=== PATIENT | female | born 1965 | race American Indian/Alaskan Native ===

== ENCOUNTER 2017-09-01 14:05 | Emergency (ER) | payer MEDICAID ==
[2017-09-01 14:37] VITALS: BP 158/95
[2017-09-01] MEDS ORDERED: TYLENOL PO ONE (17:53)
[2017-09-01] MEDS ORDERED: FUL-GLO OP ONE (17:53)
[2017-09-01] MEDS ORDERED: TETRACAINE 0.5% OU STA (17:53)
[2017-09-01] MEDS ORDERED: MOTRIN PO ONE (17:53)
--- NOTE | 2017-09-01 17:54 | Emergency Department Report ---
ED General Adult HPI - General Chief complaint: Eye Problems Stated complaint: EYE PAIN Time Seen by Provider: 09/01/17 17:47 Source: patient, RN notes reviewed Mode of arrival: Ambulatory Limitations: No Limitations - History of Present Illness Initial comments: This is a 52-year-old female who was previously unknown to this provider, typically wears glasses, patient seen 2 weeks ago by an hand collator in [place], Dr. Busby, who prescribed the patient a neomycin polymyxin ointment for her eyes for nonspecific ocular redness. Patient reports that at the time her hand collator felt that the ocular redness was coming to saline solution. She reports that over the past 2 weeks she's had increasing eye redness and discomfort. She also describes discharge in the morning. She is currently using glasses that are a prescription that is 20 years old. Her pain is constant, and does not have exacerbating or relieving factors. She denies loss of vision. -: Gradual Location: eyes Radiation: non-radiation Quality: aching Consistency: constant Improves with: none Worsens with: none Associated Symptoms: denies: confusion, chest pain, cough, diaphoresis, fever/ chills, headaches, loss of appetite, malaise, nausea/vomiting, rash, seizure, shortness of breath, syncope, weakness - Related Data Home Medications Medication Instructions Recorded Confirmed Last Taken amLODIPine [Norvasc] 5 mg PO DAILY 03/05/16 04/11/16 04/11/16 07:30 Previous Rx's Medication Instructions Recorded Last Taken Type Acetaminophen [Tylenol Arthritis] 650 mg PO Q6HR PRN #30 tablet.er 09/01/17 Unknown Rx Gentamicin 0.3% Ophth Soln 1 drops OP Q4H #1 bottle 09/01/17 Unknown Rx Ibuprofen [Motrin] 600 mg PO Q8H PRN #30 tablet 09/01/17 Unknown Rx oxyCODONE [Roxicodone] 5 mg PO Q6HR PRN #15 tablet 09/01/17 Unknown Rx Allergies Allergy/AdvReac Type Severity Reaction Status Date / Time No Known Allergies Allergy Verified 06/12/13 00:21 ED Review of Systems ROS: Stated complaint: EYE PAIN Other details as noted in HPI ED Past Medical Hx - Past Medical History Hx Hypertension: Yes (FOR 3 MTHS, [facility]- PCP) Hx Congestive Heart Failure: No Hx Diabetes: No Hx Asthma: No Hx COPD: No Hx HIV: No - Surgical History Hx Cholecystectomy: Yes (05/2012) Hx Breast Surgery: Yes (RIGHT BREAST STEREOTACTIC BX --, ) Additional Surgical History: . myomectomy - Social History Smoking Status: Never Smoker - Medications Home Medications: Home Medications Medication Instructions Recorded Confirmed Last Taken Type amLODIPine [Norvasc] 5 mg PO DAILY 03/05/16 04/11/16 04/11/16 07:30 History Acetaminophen [Tylenol Arthritis] 650 mg PO Q6HR PRN #30 tablet.er 09/01/17 Unknown Rx Gentamicin 0.3% Ophth Soln 1 drops OP Q4H #1 bottle 09/01/17 Unknown Rx Ibuprofen [Motrin] 600 mg PO Q8H PRN #30 tablet 09/01/17 Unknown Rx oxyCODONE [Roxicodone] 5 mg PO Q6HR PRN #15 tablet 09/01/17 Unknown Rx ED Physical Exam - General Limitations: No Limitations General appearance: alert, in no apparent distress - Head Head exam: Present: atraumatic, normocephalic - Eye Eye exam: Present: PERRL, EOMI (negative [place] sign. Negative fluorescein uptake), conjunctival injection, other (visual acuity intact to finger counting , color perception, reading at a close distance). Absent: normal appearance, scleral icterus, nystagmus, periorbital swelling, periorbital tenderness - ENT ENT exam: Present: normal exam, normal orophraynx, mucous membranes moist, normal external ear exam - Neck Neck exam: Present: normal inspection, full ROM - Respiratory Respiratory exam: Present: normal lung sounds bilaterally. Absent: respiratory distress - Cardiovascular Cardiovascular Exam: Present: regular rate, normal rhythm, normal heart sounds. Absent: systolic murmur, diastolic murmur, rubs, gallop - GI/Abdominal GI/Abdominal exam: Present: soft, normal bowel sounds. Absent: distended, tenderness, guarding, rebound, rigid, pulsatile mass - Extremities Exam Extremities exam: Present: normal inspection, full ROM. Absent: pedal edema, calf tenderness - Back Exam Back exam: Present: normal inspection, full ROM. Absent: tenderness, CVA tenderness (R), paraspinal tenderness, vertebral tenderness - Neurological Exam Neurological exam: Present: alert, oriented X3, CN II-XII intact, normal gait, other (Extraocular movements intact. Tongue midline. No facial droop. Facial sensation intact to light touch in the V1, V2, V3 distribution bilaterally. 5 and 5 strength in 4 extremities.. Sensation is intact to light touch in 4 extremities.). Absent: motor sensory deficit - Psychiatric Psychiatric exam: Present: anxious - Skin Skin exam: Present: warm, dry, intact, normal color. Absent: rash ED Course Vital Signs 09/01/17 14:30 Temperature 98.3 F Pulse Rate 100 H Respiratory 16 Rate Blood Pressure 158/95 O2 Sat by Pulse 99 Oximetry ED Medical Decision Making - Lab Data Vital Signs 09/01/17 14:30 Temperature 98.3 F Pulse Rate 100 H Respiratory 16 Rate Blood Pressure 158/95 O2 Sat by Pulse 99 Oximetry - Medical Decision Making Differential diagnosis, including but not limited to: Scleritis, episcleritis, conjunctivitis Assessment and plan: 52-year-old female with 2 weeks of ocular redness discharge and discomfort. Patient reports wearing contact lenses up until a few days ago. Patient instructed to immediately discontinue and throughout contact lens use. Patient had partial relief with application of tetracaine. We will discontinue neomycin polymyxin antibiotic, and initiate antipseudomonal topical antibiotic. Patient is instructed to follow up very closely with outpatient ophthalmology. Given 2 weeks of symptoms, do not feel that patient requires emergent differentiation of scleritis versus episcleritis this evening , therefore we will withhold systemic steroids or topical steroids. Critical care attestation.: If time is entered above; I have spent that time in minutes in the direct care of this critically ill patient, excluding procedure time. ED Disposition Clinical Impression: Eye redness Disposition: [id number] TO HOME OR SELFCARE Is pt being admited?: No Does the pt Need Aspirin: No Condition: Stable Instructions: Conjunctivitis (ED) Additional Instructions: Discontinue contact lens use, discard contact lenses, contact lens solution, contact lens case. Follow-up as soon as possible within hand collator for further evaluation and management. Follow up with any of the listed ophthalmology specialist. In addition, follow up with an boat joiner helper as soon as possible for a reevaluation on prescription glasses prescription. Return to the ER right away with new pain, worsened pain, migration of pain, inability to see, loss of vision in the eye, fevers, chills, chest pain, shortness of breath, severe pain with ocular movement. Referrals: ABENA PORTER MD [Primary Care Provider] - 3-5 Days ENID OCASIO MD [Staff Physician] - 3-5 Days MARY JO OLIVARES MD [Staff Physician] - 3-5 Days CLARA MARTINEZ MD [Staff Physician] - 3-5 Days EVY KASPER MD [Staff Physician] - 3-5 Days JAQUELINE EDUARDO MD [Staff Physician] - 3-5 Days BC LARSEN MD [Staff Physician] - 3-5 Days EUGENIO MARTINEZ MD [Staff Physician] - 3-5 Days
[2017-09-01] MEDS ORDERED: TETRACAINE 0.5% ONE (18:08)
[2017-09-01] MEDS ORDERED: BSS ONE (18:08)
== END 2017-09-01 18:52 | disposition home or self-care (01) ==
LOC: ED 14:05
DX: H57.8 Other specified disorders of eye and adnexa (principal); I10 Essential (primary) hypertension